=== PATIENT | female | born 1940 | race Two or more races ===

== ENCOUNTER 2017-07-06 14:23 | Inpatient (IN) | payer MEDICARE, OTHER ==
[~2017-07-06] VITALS: Ht 167.6 cm; Wt 79.4 kg
[2017-07-06] MEDS ORDERED: ERGOCAL2500 UNIT PO (14:32)
[2017-07-06] MEDS ORDERED: CLOTRIMAZOLE15 GM TOPIC (14:32)
[2017-07-06] MEDS ORDERED: ZOFRAN4 M3 ORAL (14:32)
[2017-07-06] MEDS ORDERED: CRESTOR10 M2 ORAL (14:32)
[2017-07-06] MEDS ORDERED: DEXILANT60 MG ORAL (14:32)
[2017-07-06] MEDS ORDERED: TYLENOL650 MG/20. ORAL (14:32)
[2017-07-06] MEDS ORDERED: ZOLPIDEM TARTRAT5 MG ORAL (14:32)
[2017-07-06] MEDS ORDERED: CALMOSEPTINE1 APPLIC TOPIC (14:32)
[2017-07-06] MEDS ORDERED: CARVEDILOL3.125 MG ORAL (14:32)
[2017-07-06] MEDS ORDERED: OXYBUTYNIN CHLOR5 M1 ORAL (14:32)
[2017-07-06] MEDS ORDERED: DOXAZOSIN MESYLA1 MG ORAL (14:32)
[2017-07-06] MEDS ORDERED: BISACODYL5 MG ORAL (14:32)
--- NOTE | 2017-07-06 14:45 | Emergency Room Report ---
History of Present Illness General Chief Complaint: Malfunctioning Gastric Tube Source: Patient, Medical Record Present Illness HPI 68-year-old female Farsi speaking only coming from [facility], history of stomach cancer with jejunostomy tube, hyperlipidemia, depression, hypertension, presenting with G-tube malfunction. Patient had jejunostomy placed 06/26/2017 after having constant nausea and vomiting. Per nursing notes, patient is to be admitted for G-tube replacement as it is not working. Patient currently denying any pain at this time. Allergies: Coded Allergies: No Known Allergies (Unverified , 07/06/17) Patient History Past Medical History: see triage record Past Surgical History: none Pertinent Family History: none Last Menstrual Period: n/a Reviewed Nursing Documentation: PMH: Agreed, PSxH: Agreed Nursing Documentation-PMH Past Medical History: No History, Except For Hx Hypertension: Yes Review of Systems All Other Systems: negative except mentioned in HPI Physical Exam Vital Signs Date Time Temp Pulse Resp B/P (MAP) Pulse Ox O2 Delivery O2 Flow Rate FiO2 07/06/17 14:20 97.5 109 16 108/56 93 Room Air Sp02 EP Interpretation: reviewed, normal General Appearance: alert, GCS 15, non-toxic, other - Elderly female, chronically ill appearing, not in acute distress, not in pain, not dehydrated Head: normocephalic, atraumatic Eyes: bilateral eye normal inspection, bilateral eye PERRL, bilateral eye EOMI ENT: normal ENT inspection, normal pharynx, normal voice, moist mucus membranes Neck: normal inspection, full range of motion, supple Respiratory: normal inspection, lungs clear, normal breath sounds, no respiratory distress, no retraction, no wheezing, speaking full sentences, chest symmetrical Cardiovascular #1: normal inspection, regular rate, rhythm, no edema, normal capillary refill Cardiovascular #2: 2+ radial (R), 2+ radial (L) Gastrointestinal: soft, non-distended, no guarding, other - Jejunostomy beneath umbilicus, sutures in place, nontender abdomen Musculoskeletal: normal inspection, back normal, normal range of motion, non- tender Neurologic: normal inspection, alert, responsive, motor strength/tone normal, sensory intact Psychiatric: normal inspection, judgement/insight normal, memory normal Skin: normal inspection, normal color, no rash, warm/dry, well hydrated, normal turgor Medical Decision Making Diagnostic Impression: Primary Impression: Jejunostomy malfunction ER Course 76-year-old female sent in from [facility] for J-tube malfunction DDX: J-tube mal function No other complaints at this time Plan: Obtained basic labs, will admit for J-tube replacement ER course: Patient has been monitored during ED stay, HD stable repeat abd exam nontender paged Dr Davison for GI however no response Disposition: Patient is to be admitted to [facility]W hospitalist Dr Khaill who has accepted patient for admission Please note that this Emergency Department Report was dictated using [employer] coordinator technology software, occasionally this can lead to erroneous entry secondary to interpretation by the dictation equipment. Laboratory Tests Test 07/06/17 15:05 White Blood Count 8.4 K/UL (4.8-10.8) Red Blood Count 3.87 M/UL (4.20-5.40) L Hemoglobin 11.1 G/DL (12.0-16.0) L Hematocrit 36.4 % (37.0-47.0) L Mean Corpuscular Volume 94 FL (80-99) Mean Corpuscular Hemoglobin 28.6 PG (27.0-31.0) Mean Corpuscular Hemoglobin Concent 30.5 G/DL (32.0-36.0) L Red Cell Distribution Width 12.7 % (11.6-14.8) Platelet Count 230 K/UL (150-450) Mean Platelet Volume 6.9 FL (6.5-10.1) Neutrophils (%) (Auto) 61.2 % (45.0-75.0) Lymphocytes (%) (Auto) 27.1 % (20.0-45.0) Monocytes (%) (Auto) 9.1 % (1.0-10.0) Eosinophils (%) (Auto) 2.1 % (0.0-3.0) Basophils (%) (Auto) 0.5 % (0.0-2.0) Sodium Level 143 MMOL/L (136-145) Potassium Level 4.4 MMOL/L (3.5-5.1) Chloride Level 106 MMOL/L (98-107) Carbon Dioxide Level 27 MMOL/L (21-32) Anion Gap 11 mmol/L (5-15) Blood Urea Nitrogen 14 mg/dL (7-18) Creatinine 0.8 MG/DL (0.55-1.30) Estimate Glomerular Filtration Rate mL/min (>60) Glucose Level 112 MG/DL (74-106) H Calcium Level 9.5 MG/DL (8.5-10.1) Total Bilirubin 0.3 MG/DL (0.2-1.0) Aspartate Amino Transferase (AST) 27 U/L (15-37) Alanine Aminotransferase (ALT) 26 U/L (12-78) Alkaline Phosphatase 61 U/L (46-116) Total Protein 7.1 G/DL (6.4-8.2) Albumin 2.9 G/DL (3.4-5.0) L Globulin 4.2 g/dL Albumin/Globulin Ratio 0.7 (1.0-2.7) L Lipase 194 U/L (73-393) Last Vital Signs Date Time Temp Pulse Resp B/P (MAP) Pulse Ox O2 Delivery O2 Flow Rate FiO2 07/06/17 14:20 97.5 109 16 108/56 93 Room Air Disposition: ADMITTED INPATIENT Condition: Serious ManjulaoNixon M.D. Jul 06, 2017 14:45
[2017-07-06 14:48] VITALS: BP 134/60
[2017-07-06 15:36] LABS: BASOPHILS % (AUTO) 0.5 % (0.0-2.0); EOSINOPHILS % (AUTO) 2.1 % (0.0-3.0); LYMPHOCYTES % (AUTO) 27.1 % (20.0-45.0); MEAN CORPUSCULAR HEMOGLOBIN 28.6 PG (27.0-31.0); MEAN CORPUSCULAR HGB CONC 30.5 G/DL (32.0-36.0); MEAN CORPUSCULAR VOLUME 94 FL (80-99); MEAN PLATELET VOLUME 6.9 FL (6.5-10.1); MONOCYTES % (AUTO) 9.1 % (1.0-10.0); NEUTROPHILS % (AUTO) 61.2 % (45.0-75.0); PLATELET COUNT 230 K/UL (150-450); RED BLOOD COUNT 3.87 M/UL (4.20-5.40); RED CELL DISTRIBUTION WIDTH 12.7 % (11.6-14.8); WHITE BLOOD COUNT 8.4 K/UL (4.8-10.8)
[2017-07-06 15:58] VITALS: BP 132/65
[2017-07-06 16:11] LABS: ALANINE AMINOTRANSFERASE 26 U/L (12-78); ALBUMIN/GLOBULIN RATIO 0.7 (1.0-2.7); ANION GAP 11 mmol/L (5-15); ASPARTATE AMINO TRANSFERASE 27 U/L (15-37); CALCIUM 9.5 MG/DL (8.5-10.1); CARBON DIOXIDE 27 MMOL/L (21-32); CHLORIDE 106 MMOL/L (98-107); CREATININE 0.8 MG/DL (0.55-1.30); LIPASE 194 U/L (73-393); POTASSIUM 4.4 MMOL/L (3.5-5.1); SODIUM 143 MMOL/L (136-145); TOTAL PROTEIN 7.1 G/DL (6.4-8.2)
[2017-07-06 17:00] VITALS: BP 150/78
[2017-07-06] MEDS ORDERED: Bisacodyl EC 5mg tab ORAL PRN (18:15)
[2017-07-06] MEDS ORDERED: Zolpidem 5mg tab ORAL PRN (18:15)
[2017-07-06 19:07] VITALS: BP 134/77
[2017-07-06] MEDS ORDERED: Atorvastatin 20mg tab ORAL SCH (21:00)
[2017-07-06] MEDS ORDERED: Morphine Sulfate 2mg/ml Inj IVP PRN (23:00)
[2017-07-06] MEDS ORDERED: Morphine Sulfate 4mg/ml Inj IVP PRN (23:00)
[2017-07-06 23:20] VITALS: BP 132/54
[2017-07-07 03:31] VITALS: BP 141/80
--- NOTE | 2017-07-07 06:52 | History & Physical ---
History and Physical History & Physicial 68-year-old female Farsi speaking patient presents from shelter facility , with JT malfunction and increasing abdominal pain. Patient had the wound care physician look at replacement at the SNF but felt patient needed to be transferred. patient apparently able to swallow as well. Patient with history of stomach cancer with jejunostomy tube placed recently at an outside hospital and recently transferred to the SNF. Patient without fevers, chills, palpitations, or coffee ground emesis. , Patient had jejunostomy placed 06/26/2017 and has had persistent nausea and vomiting. Patient currently pain free Allergies: No Known Allergies (Unverified , 07/06/17) Past Medical History: hyperlipidemia, depression, hypertension, stomach cancer Past Surgical History: JT Pertinent Family History: NA Reviewed of systems: as above Physical exam WDWN NAD clear breath sounds bilaterally without rhonchi or wheeze [id number] without MRG NABS nontender no HSM no CCE nonfocal but weak Labs Test 07/06/17 15:05 White Blood Count 8.4 K/UL (4.8-10.8) Red Blood Count 3.87 M/UL (4.20-5.40) Hemoglobin 11.1 G/DL (12.0-16.0) Hematocrit 36.4 % (37.0-47.0) Mean Corpuscular Volume 94 FL (80-99) Mean Corpuscular Hemoglobin 28.6 PG (27.0-31.0) Mean Corpuscular Hemoglobin Concent 30.5 G/DL (32.0-36.0) Red Cell Distribution Width 12.7 % (11.6-14.8) Platelet Count 230 K/UL (150-450) Mean Platelet Volume 6.9 FL (6.5-10.1) Neutrophils (%) (Auto) 61.2 % (45.0-75.0) Lymphocytes (%) (Auto) 27.1 % (20.0-45.0) Monocytes (%) (Auto) 9.1 % (1.0-10.0) Eosinophils (%) (Auto) 2.1 % (0.0-3.0) Basophils (%) (Auto) 0.5 % (0.0-2.0) Sodium Level 143 MMOL/L (136-145) Potassium Level 4.4 MMOL/L (3.5-5.1) Chloride Level 106 MMOL/L (98-107) Carbon Dioxide Level 27 MMOL/L (21-32) Anion Gap 11 mmol/L (5-15) Blood Urea Nitrogen 14 mg/dL (7-18) Creatinine 0.8 MG/DL (0.55-1.30) Estimat Glomerular Filtration Rate mL/min (>60) Glucose Level 112 MG/DL (74-106) Calcium Level 9.5 MG/DL (8.5-10.1) Total Bilirubin 0.3 MG/DL (0.2-1.0) Aspartate Amino Transf (AST/SGOT) 27 U/L (15-37) Alanine Aminotransferase (ALT/SGPT) 26 U/L (12-78) Alkaline Phosphatase 61 U/L (46-116) Total Protein 7.1 G/DL (6.4-8.2) Albumin 2.9 G/DL (3.4-5.0) Globulin 4.2 g/dL Albumin/Globulin Ratio 0.7 (1.0-2.7) Lipase 194 U/L (73-393) Impression JT malfunction abdominal pain stomach cancer hypertension hyperlipidemia PLAN IV hydration resume meds GI evaluation for placement swallow evaluation dc back to snf when stable and cleared impression, plan, and exam edited and reviewed in detail care discussed with DEON DINH Jul 07, 2017 06:52
[2017-07-07 08:00] VITALS: BP 126/61
[2017-07-07] MEDS ORDERED: Oxybutynin 5mg tab ORAL SCH (09:00)
[2017-07-07] MEDS ORDERED: Doxazosin 1mg Tab ORAL SCH (09:00)
--- NOTE | 2017-07-07 10:10 | General Progress Note ---
Assessment/Plan Assessment/Plan GI CONSULT Assessment - Advanced gastric CA with N/V - s/p surgical JT about 2 weeks ago - occluded - unable to declog the J tube with endoscope brush wire Recommendations - NPO - IVF - surgical opinion re options (?bedside replacement, ? IR replacement) Thank you Eboni Mullins MD Subjective Allergies: Coded Allergies: No Known Allergies (Unverified , 07/06/17) Objective Last 24 Hour Vital Signs Date Time Temp Pulse Resp B/P (MAP) Pulse Ox O2 Delivery O2 Flow Rate FiO2 07/07/17 08:00 97.7 83 19 126/61 95 07/07/17 03:31 98.1 89 20 141/80 Room Air 07/06/17 23:20 97.5 109 20 132/54 94 Room Air 07/06/17 19:07 97.7 105 20 134/77 96 Room Air 07/06/17 17:00 98.4 108 20 150/78 96 Room Air 07/06/17 16:00 99 22 132/65 96 Room Air 07/06/17 15:58 99 22 132/65 96 Room Air 07/06/17 14:48 104 18 134/60 97 Room Air 07/06/17 14:20 97.5 109 16 108/56 93 Room Air Laboratory Tests 07/06/17 15:05: White Blood Count 8.4, Red Blood Count 3.87L, Hemoglobin 11.1L, Hematocrit 36.4L , Mean Corpuscular Volume 94, Mean Corpuscular Hemoglobin 28.6, Mean Corpuscular Hemoglobin Concent 30.5L, Red Cell Distribution Width 12.7, Platelet Count 230, Mean Platelet Volume 6.9, Neutrophils (%) (Auto) 61.2, Lymphocytes (%) (Auto) 27.1, Monocytes (%) (Auto) 9.1, Eosinophils (%) (Auto) 2.1, Basophils (%) (Auto) 0.5, Sodium Level 143, Potassium Level 4.4, Chloride Level 106, Carbon Dioxide Level 27, Anion Gap 11, Blood Urea Nitrogen 14, Creatinine 0.8, Estimat Glomerular Filtration Rate , Glucose Level 112H, Calcium Level 9.5, Total Bilirubin 0.3, Aspartate Amino Transf (AST/SGOT) 27, Alanine Aminotransferase (ALT/SGPT) 26, Alkaline Phosphatase 61, Total Protein 7.1, Albumin 2.9L, Globulin 4.2, Albumin/Globulin Ratio 0.7L, Lipase 194 Height (Feet): 5 Height (Inches): 6.00 Weight (Pounds): 175 ANIA MULLINS Jul 07, 2017 10:10
--- NOTE | 2017-07-07 10:48 | General Progress Note ---
Progress Note Progress Note Surgery: asked to see patient for malfunctioning j tube. was able to declog tube at bedside without complication. tube functional. able to push fluids without difficulty. able to aspirate bowel contents without difficulty. okay to use feeding tube. from my understanding patient able to tolerating oral feeds as well. may consider speech eval and starting oral diet? no further surgical intervention necessary. thank you for allowing me to participate in this patients care. Luis Palmer Jul 07, 2017 10:48
[2017-07-07 12:00] VITALS: BP 145/71
[2017-07-07 16:00] VITALS: BP 127/53
--- NOTE | 2017-07-08 09:30 | Consultation ---
DATE OF CONSULTATION: 07/07/2017 GASTROENTEROLOGY CONSULTATION CHIEF COMPLAINT: I was asked to see this patient by Dr. Khalil for evaluation of jejunostomy dysfunction. HISTORY OF PRESENT ILLNESS: The patient is a debilitated 76-year-old [place]ian woman, who was diagnosed with history of gastric cancer. The patient has no medical records here and she is a poor historian. Some additional history was available from the patient's family. Apparently, the patient could not eat and had repeated bouts of nausea and vomiting and therefore eventually a jejunostomy catheter was placed for her. She has an outside surgeon, who follows her. The patient is now brought here because the jejunostomy catheter has been occluded. I tried to declog the jejunostomy catheter using an endoscope brush, but was unsuccessful. The patient denies any abdominal pain or vomiting at this time. PAST MEDICAL HISTORY: History of gastric cancer, nausea, vomiting, hypertension, hyperlipidemia, obesity, status post jejunostomy catheter placement by laparoscopic technique. SOCIAL HISTORY: The [place] is from [place] and has had no recent history of smoking or drinking. FAMILY HISTORY: Noncontributory. 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 PHYSICAL EXAMINATION: GENERAL: A pleasant elderly [place]ian woman, seen in her room. HEENT: Normocephalic and atraumatic. Sclerae anicteric. corneal scars noted NECK: Supple. CHEST: Clear to auscultation. CARDIOVASCULAR: Revealed regular rate. ABDOMEN: Soft. Jejunostomy catheter is as described above. EXTREMITIES: Revealed no edema. LABORATORY DATA: Noted. ASSESSMENT: This patient has a clogged jejunostomy catheter, which will have to be evaluated by the surgical staff. It was only placed two weeks ago and the track was not immature. I was unable to declog this. I also needed to treat her at the bedside and have Radiology change it under Interventional Radiology techniques. In addition, this will be discussed with the patient's primary physician and the surgical staff. RECOMMENDATIONS: 1. Keep the patient NPO. 2. IV fluids. 3. Surgical evaluation regarding jejunostomy tube dysfunction. Thank you for asking me to participate in the care of this patient. Angelita Mullins M.D. DR: Wale JOB#: [id number] CC: ABBE
--- NOTE | 2017-07-08 10:59 | Discharge Summary ---
Discharge Summary Hospital Course Date of Admission Jul 06, 2017 at 15:28 Date of Discharge Jul 07, 2017 at 19:00 Admitting Diagnosis G tube malfunction HPI Sergio Ceja is a 76 year old female who was admitted on Jul 06, 2017 at 15: 28 for Gtube Replacement [place] Hospital Course [id number] Discharge Discharge Disposition Patient was discharged to snf Discharge Diagnoses: Mari Miranda NP Jul 08, 2017 10:59
--- NOTE | 2017-07-09 03:45 | Discharge Summary 2 SIG ---
DATE OF ADMISSION: 07/06/2017 DATE OF DISCHARGE: 07/07/2017 CONSULTANTS: 1. Angelita Mullins M.D. 2. Luis Palmer M.D. BRIEF HOSPITAL COURSE: The patient is a 76-year-old female from long-term facility was taken to ED due to a malfunctioning J-tube. She has a history of stomach CA with jejunostomy tube placed recently at an outside hospital and was transferred to SNF. On admission, GI was consulted. The patient was seen by Dr. Mullins who tried to declog the jejunostomy catheter using an endoscope brush but was unsuccessful. The patient was kept on NPO and was given IV fluids. Dr. Palmer was then called in for surgical evaluation. He was then able to be declog the tube at bedside. Tube is functioning and able to push fluids without difficulty and able to aspirate bowel contents without difficulty. Feeding tube was okay to be used. Due to rapid unexpected improvement in the patient's symptoms, [facility] FINAL DIAGNOSES: 1. Jejunostomy tube malfunction status post repair. 2. Abdominal pain. 3. Stomach cancer. 4. Hypertension. 5. Hyperlipidemia. DISPOSITION: The patient was discharged to [facility]. DISCHARGE MEDICATIONS: Refer to medication list. Khris Khalil M.D. I have been assigned to dictate discharge summary on this account and I was not involved in the patient's management. Mari Miranda N.P. DR: JEAN PAUL JOB#: [id number] CC: ABBE
== END 2017-07-07 19:00 | DRG 394 ==
LOC: EDBD 14:23 → EMR 14:52 → EDBEDREQ 15:27 → 4W 15:28 → EDBEDREQ 15:39 → 4W 18:00
DX: K94.13 Enterostomy malfunction (principal); C16.9 Malignant neoplasm of stomach, unspecified; E78.5 Hyperlipidemia, unspecified; I10 Essential (primary) hypertension
CPT/HCPCS: 36415; 80053; 83690; 85025; 87081; 99285